=== PATIENT | male | born 1975 | race Two or more races ===

== ENCOUNTER 2018-05-13 10:28 | Emergency (ER) | payer OTHER ==
[~2018-05-13] VITALS: Ht 154.9 cm; Wt 72.6 kg
[2018-05-13 10:34] VITALS: BP 127/94
[2018-05-13] MEDS ORDERED: ONDANSETRON 4 MG TAB.RAPDIS ONE (11:09)
[2018-05-13] MEDS ORDERED: ONDANSETRON 4 MG TAB.RAPDIS SL ONE (11:30)
== END 2018-05-13 11:45 ==
LOC: ER 10:32
DX: F11.23 Opioid dependence with withdrawal (principal); Z90.89 Acquired absence of other organs
CPT/HCPCS: 99283; A4606; Q0162; Z7610

== ENCOUNTER 2018-09-23 09:37 | Emergency (ER) | payer OTHER ==
[~2018-09-23] VITALS: Ht 165.1 cm; Wt 59.0 kg
[2018-09-23] MEDS ORDERED: LIDOCAINE 1%-EPI 1:100,000 50 ML VIAL IJ ONE (11:00)
[2018-09-23 11:07] LABS: BASOPHILS # (AUTO) 0.1 /CMM (0.0-0.2); BASOPHILS % (AUTO) 0.7 % (0.0-2.0); EOSINOPHILS % (AUTO) 1.2 % (0.0-6.0); HEMATOCRIT 46 % (39-51); HEMOGLOBIN 16.1 g/dL (13.5-17.5); LYMPHOCYTES # (AUTO) 1.1 /CMM (0.8-4.8); MEAN CORPUSCULAR HGB CONC 35 g/dl (31.0-36.0); MEAN CORPUSCULAR VOLUME 93 fL (80-96); MONOCYTES # (AUTO) 0.6 /CMM (0.1-1.30); MONOCYTES % (AUTO) 7.1 % (2.0-12.0); NEUTROPHILS # (AUTO) 6.7 /CMM (1.8-8.9); PLATELET COUNT (AUTO) 277 /CMM (150-450); RED BLOOD CELL COUNT(AUTO) 4.88 MIL/uL (4.5-6.0); WHITE BLOOD COUNT (AUTO) 8.5 K/uL (4.3-11.0)
[2018-09-23 11:18] LABS: CALCIUM, SERUM 9.3 mg/dL (8.5-10.1); CREATININE 0.8 mg/dL (0.6-1.3); POTASSIUM 4.4 mmol/L (3.5-5.1)
--- NOTE | 2018-09-23 11:48 | NUR ---
Rx provided, patient discharged to [employer]. Written and verbal after care instructions given. Patient and police officers verbalizes understanding of instruction. Patient OK to BOOK per MD.
[2018-09-23 11:50] VITALS: BP 120/86
== END 2018-09-23 11:51 ==
LOC: ER 09:39
DX: L02.415 Cutaneous abscess of right lower limb (principal); L02.413 Cutaneous abscess of right upper limb; Z90.89 Acquired absence of other organs
CPT/HCPCS: 10061; 36415; 73110; 73590 ×2; 80048; 83605; 85025; 99284; A6402; A6403; J3490